=== PATIENT | female | born 2000 | race Caucasian/White ===

== ENCOUNTER 2022-05-24 14:47 | Outpatient (CLI) | payer OTHER | END 2022-05-24 14:48 | disposition home or self-care (01) | LOC: CSHULT 14:47 | PROVIDERS: ATTEND Nurse Practitioner Women's Health | DX: Z34.82 Encounter for supervision of other normal pregnancy, second trimester (principal); Z3A.24 24 weeks gestation of pregnancy | CPT/HCPCS: 76805 ==

== ENCOUNTER 2022-07-28 10:35 | Day surgery (SDC) | payer OTHER ==
[2022-07-28 11:39] VITALS: BMI 31.7
[2022-07-28] MEDS ORDERED: hydrALAZINE 20 MG/ML VIAL SLOW IVP PRN ×2 (11:44→12:41)
[2022-07-28 12:11] LABS: Fetal Membranes Rupture RUPTURE DETECTED (No Rupture)
[2022-07-28 12:28] LABS: Bilirubin Neg (Negative); Blood, Urine 150 (Negative); CAUTI Indications for Culture Dysuria,urgency,freq; Clarity Clear (Clear); Glucose, Urine (Dipstick) Normal (Negative); Ketone, Urine Negative (Negative); Leukocyte Negative (Negative); Nitrite Negative (Negative); Protein, Urine (Dipstick) Negative (Neg-Trace); Urobilinogen Normal mg/dL (Less than 2)
[2022-07-28 12:30] LABS: Urine Culture Reflex No No
[2022-07-28 12:34] LABS: Bacteria/HPF None Seen HPF (None Seen); WBC/HPF 0-3 HPF (0-3)
[2022-07-28] MEDS ORDERED: Promethazine HCl 25 MG/ML VIAL IM PRN (12:41)
[2022-07-28] MEDS ORDERED: Docusate 100 MG CAP PO PRN (12:41)
[2022-07-28] MEDS ORDERED: Lidocaine 1% (PF) 30 ML VIAL SC PRN (12:41)
[2022-07-28] MEDS ORDERED: Butorphanol Tartrate 1 MG/ML VIAL SLOW IVP PRN (12:41)
[2022-07-28] MEDS ORDERED: Acetaminophen 500 MG TAB PO PRN (12:41)
[2022-07-28] MEDS ORDERED: Ondansetron PF 4 MG/2 ML Vial IVP PRN (12:41)
[2022-07-28] MEDS ORDERED: NS w/ Oxytocin 30 units 500 ML IV SCH (12:45)
[2022-07-28] MEDS ORDERED: Betamet Acet/Betamet Na Ph 30 MG/5 ML VIAL IM SCH (12:45)
[2022-07-28] MEDS ORDERED: Lactated Ringer's 1,000 ML IV SCH (12:45)
[2022-07-28] MEDS ORDERED: Ampicillin 2 GM in Sodium Chloride 0.9% 100 ML IVPB SCH (14:15)
[2022-07-28] MEDS ORDERED: Azithromycin 250 MG TAB PO SCH (14:15)
[2022-07-28 14:18] LABS: Hemoglobin 11.4 g/dL (12.0-15.5); Mean Corpuscular HGB CONC 35.7 g/dL (32.0-36.0); Mean Corpuscular Hemoglobin 32.4 pg (27.0-33.0); Mean Corpuscular Volume 90.6 fl (81.6-98.3); Mean Platelet Volume 10.3 fl (7.4-10.4); Platelet Count 231 10x3/uL (150-450); RBC Distribution Width 13.2 % (11.5-14.5); Red Blood Cell (RBC) Count 3.52 10x6/uL (3.90-5.03); White Blood Cell (WBC) Count 15.2 10x3/uL (3.5-10.5)
[2022-07-28] MEDS ORDERED: metroNIDAZOLE 500 MG TAB PO SCH (14:30)
[2022-07-28 14:47] LABS: HBSAg Index 0.16 S/CO (0-0.99); Hep B Surf Ag Non-Reactive S/CO (NonReactive)
[2022-07-28 14:48] LABS: Syphilis Antibody Nonreactive (Nonreactive); Syphilis Antibody Index 0.04 S/CO (<1.00 Non-Reactive)
[2022-07-28 14:48] LABS: SARS-CoV-2 NAA Rapid Test Not Detected (NotDetected)
== END 2022-07-28 16:20 | disposition home or self-care (01) ==
LOC: CSHLD/OP 10:35
PROVIDERS: ATTEND Family Medicine
DX: O60.03 Preterm labor without delivery, third trimester (principal); O26.893 Other specified pregnancy related conditions, third trimester; R10.9 Unspecified abdominal pain; Z3A.33 33 weeks gestation of pregnancy
CPT/HCPCS: 36415; 76815; 81001; 84112; 85027; 86780; 86850; 86900; 86901; 87340; 87480; 87510; 87660; 99284; J0290; J0702; J3490; U0002

== ENCOUNTER 2022-08-14 00:16 | Inpatient (IN) | payer OTHER ==
[2022-08-14 00:46] VITALS: BMI 32.2
[2022-08-14] MEDS ORDERED: hydrALAZINE 20 MG/ML VIAL SLOW IVP PRN ×3 (00:47→12:45)
[2022-08-14] MEDS ORDERED: Lactated Ringer's 1,000 ML IV SCH ×2 (01:00→03:00)
[2022-08-14] MEDS ORDERED: Ondansetron PF 4 MG/2 ML Vial ONE (01:10)
[2022-08-14 01:25] LABS: Fetal Membranes Rupture RUPTURE DETECTED (No Rupture)
[2022-08-14] MEDS ORDERED: Ondansetron PF 4 MG/2 ML Vial IVP SCH (01:30)
[2022-08-14 02:25] LABS: ALT (SGPT) 16 U/L (8-55); AST (SGOT) 20 U/L (5-34); Albumin 3.3 g/dL (3.5-5.0); Alkaline Phosphatase 205 U/L (40-110); Anion Gap 16 mmol/L (10-20); BUN (Urea Nitrogen) 7 mg/dL (7.0-18.7); Bilirubin, Total 0.6 mg/dL (0.2-1.2); Calc. Creatinine Clearance 207 mL/min (70-130); Calcium 8.3 mg/dL (7.8-10.44); Carbon Dioxide 18 mmol/L (22-29); Chloride 106 mmol/L (98-107); Estimated GFR 131; Globulin 2.5 g/dL (2.4-3.5); Glucose 82 mg/dL (70-105); Potassium 3.6 mmol/L (3.5-5.1); Protein, Total 5.8 g/dL (6.0-8.3); Sodium 136 mmol/L (136-145)
[2022-08-14 02:28] LABS: RBC/HPF 0-3 HPF (0-3)
[2022-08-14] MEDS ORDERED: Ibuprofen 800 MG TAB PO PRN (02:59)
[2022-08-14] MEDS ORDERED: Promethazine HCl 25 MG/ML VIAL IM PRN ×2 (02:59→04:54)
[2022-08-14] MEDS ORDERED: Ondansetron PF 4 MG/2 ML Vial IVP PRN ×3 (02:59→12:45)
[2022-08-14] MEDS ORDERED: Diphenoxylate HCl/Atropine Tablet PO PRN ×2 (02:59)
[2022-08-14] MEDS ORDERED: Lidocaine 1% (PF) 30 ML VIAL SC PRN (02:59)
[2022-08-14] MEDS ORDERED: Carboprost 250 MCG/ML AMP IM PRN (02:59)
[2022-08-14] MEDS ORDERED: Misoprostol 200 MCG TAB PR PRN (02:59)
[2022-08-14] MEDS ORDERED: Methylergonovine 0.2 MG/ML VIAL IM PRN (02:59)
[2022-08-14] MEDS ORDERED: Penicillin G Potassium 5 MILL.UNITS in Sodium Chloride 0.9% 100 ML IVPB SCH (03:00)
[2022-08-14] MEDS ORDERED: NS w/ Oxytocin 30 units 500 ML IV SCH (03:00)
[2022-08-14 03:23] LABS: Mean Corpuscular HGB CONC 34.3 g/dL (32.0-36.0); Mean Corpuscular Hemoglobin 31.5 pg (27.0-33.0); Mean Corpuscular Volume 91.9 fl (81.6-98.3); Mean Platelet Volume 10.5 fl (7.4-10.4); Platelet Count 245 10x3/uL (150-450); RBC Distribution Width 13.8 % (11.5-14.5); Red Blood Cell (RBC) Count 3.81 10x6/uL (3.90-5.03); White Blood Cell (WBC) Count 12.3 10x3/uL (3.5-10.5)
[2022-08-14] MEDS ORDERED: Butorphanol Tartrate 1 MG/ML VIAL SLOW IVP PRN (03:30)
[2022-08-14 03:52] LABS: HBSAg Index 0.17 S/CO (0-0.99); Hep B Surf Ag Non-Reactive S/CO (NonReactive); Syphilis Antibody Nonreactive (Nonreactive); Syphilis Antibody Index 0.05 S/CO (<1.00 Non-Reactive)
[2022-08-14] MEDS ORDERED: Fentanyl 2 mcg/Bup 0.1% Cadd 100 ML ONE (04:19)
[2022-08-14] MEDS ORDERED: Lactated Ringer's 500 ML IV PRN (04:54)
[2022-08-14] MEDS ORDERED: diphenhydrAMINE 50 MG/ML VIAL IVP PRN (04:54)
[2022-08-14] MEDS ORDERED: Naloxone HCl 0.4 mg/ml Vial IVP PRN ×2 (04:54)
[2022-08-14] MEDS ORDERED: ePHEDrine Sulfate 50 MG/10 ML VIAL SLOW IVP PRN (04:54)
[2022-08-14] MEDS ORDERED: Acetaminophen 325 MG TAB PO PRN (04:54)
[2022-08-14] MEDS ORDERED: Moisturizing Cream (Eucerin) 113 GM JAR TOP PRN (04:54)
[2022-08-14] MEDS ORDERED: Fentanyl 2 mcg/Bupivacaine 0.1% Cassette 100 ML EPIDURAL SCH (05:00)
[2022-08-14] MEDS ORDERED: Communication Order-Pharmacy FS SCH (05:00)
[2022-08-14] MEDS: Penicillin G 2.5 MILL.units 2.5 MILL.UNITS in Premix Bag 1 BAG IVPB SCH ×2 (07:32→14:33)
[2022-08-14] MEDS ORDERED: Bupivacaine 0.25% HCL 30 ML VIAL ONE (08:00)
[2022-08-14 09:16] LABS: SARS-CoV-2 NAA Rapid Test Not Detected (NotDetected)
[2022-08-14] MEDS ORDERED: HYDROcodone/Acetaminophen 5/325 mg Tablet PO PRN (12:45)
[2022-08-14] MEDS ORDERED: Benzocaine-Menthol 82.5 ML CAN TOP PRN (12:45)
[2022-08-14] MEDS ORDERED: Boostrix 0.5 ML (Tdap) VIAL (>/=7 yrs of age) IM ONE (12:45)
[2022-08-14] MEDS ORDERED: Lanolin Ointment 7 GM TUBE TOP PRN (12:45)
[2022-08-14] MEDS ORDERED: Milk Of Magnesia 30 ML UDCUP PO PRN (12:45)
[2022-08-14] MEDS ORDERED: Bisacodyl 10 MG SUPP PR PRN (12:45)
[2022-08-14] MEDS: Ibuprofen 800 MG TAB PO SCH ×2 (16:16→22:20)
[2022-08-14] MEDS: Ferrous Sulfate 325 MG TAB PO SCH (16:17)
[2022-08-14] MEDS: HYDROcodone/Acetaminophen 5/325 mg Tablet PO PRN (19:36)
[2022-08-14] MEDS: Docusate 100 MG CAP PO SCH (21:58)
[2022-08-15] MEDS: Ibuprofen 800 MG TAB PO SCH ×3 (05:22→22:20)
[2022-08-15] MEDS: Ferrous Sulfate 325 MG TAB PO SCH ×2 (09:12→15:17)
[2022-08-15] MEDS: Docusate 100 MG CAP PO SCH ×2 (09:12→22:20)
[2022-08-15] MEDS: Prenatal Vitamin 1 TAB PO SCH (09:13)
[2022-08-15] MEDS: HYDROcodone/Acetaminophen 5/325 mg Tablet PO PRN ×2 (12:59→17:24)
[2022-08-16] MEDS: HYDROcodone/Acetaminophen 5/325 mg Tablet PO PRN (01:15)
[2022-08-16] MEDS: Ibuprofen 800 MG TAB PO SCH (04:43)
[2022-08-16 07:43] VITALS: BP 111/62; TEMP 97.7
[2022-08-16] MEDS: Ferrous Sulfate 325 MG TAB PO SCH (08:42)
[2022-08-16] MEDS: Docusate 100 MG CAP PO SCH (08:44)
[2022-08-16] MEDS: Prenatal Vitamin 1 TAB PO SCH (08:44)
== END 2022-08-16 13:05 | disposition home or self-care (01) | DRG 833 ==
LOC: CSHLD/OP 00:16 → CSHLD 03:31 → CSHPP 12:44
PROVIDERS: ADMIT Family Medicine; ATTEND Family Medicine
DX: O42.013 Preterm premature rupture of membranes, onset of labor within 24 hours of rupture, third trimester (principal); Z3A.36 36 weeks gestation of pregnancy; Z20.822 Contact with and (suspected) exposure to COVID-19
CPT/HCPCS: 51702; 54150; 76815; 80053; 81015; 84112; 85027; 86780; 86850; 86900; 86901; 87340; 87480; 87510; 87660; 96900; 99285; J0595; J2405; J2540; J3490; S0020; U0002